=== PATIENT | male | born 1980 | race Caucasian/White ===

== ENCOUNTER 2022-04-30 02:06 | Emergency (ER) | payer OTHER, SELFPAY ==
[2022-04-30 02:17] VITALS: BP 166/112; PULSE 112; RESP 18; TEMP 36.6; O2SAT 98
[2022-04-30 02:25] VITALS: RESP 18; O2SAT 98
--- OUTSIDE RECORDS SUMMARY | 2022-04-30 02:52 | XMS_ITS | Clinical Summary ---
:1980 Author Organization [facility] [place] [address] Care Team Providers Name Role Phone Clinic, [facility] Bryant Primary Care Provider [phone] Allergies Active Allergy Reactions Severity Noted Date Comments Varenicline Agitation 02/06/2014 Lisinopril Angioedema 05/10/2019 Medications Medication Sig Dispensed Refills Start Date End Date Status cholecalciferol, Take 1 tablet by 0 05/08/2019 Active Vitamin D3, (VITAMIN mouth once daily. D-3) 5,000 unit tab tabletIndications: Vitamin D deficiency EPINEPHrine (EPIPEN) Inject 0.3 mg 0.3 mL 0 05/10/2019 Active 0.3 mg/0.3 mL intramuscular one injectionIndications time if needed for : Angioedema, Allergic Reaction initial encounter for up to 1 dose. buPROPion Take 1 tablet by 90 tablet 1 06/17/2019 Ac tive (WELLBUTRIN XL) 300 mouth once daily. mg Extended-Release tabletIndications: Depression with anxiety albuterol HFA Inhale 2 Puffs by 1 Each 2 03/16/2022 Active (PRO-AIR; VENTOLIN; mouth every 4 hours PROVENTIL) 90 if needed for mcg/actuation Wheezing. inhalerIndications: Mild intermittent asthma without complication predniSONE Take 1 Tablet (20 5 Tablet 0 03/16/2022 Active (DELTASONE) 20 mg mg) by mouth once tabletIndications: daily. Cough, unspecified type, Mild intermittent asthma without complication levoFLOXacin Take 1 Tablet (500 7 Tablet 0 04/29/2022 022 Active (LEVAQUIN) 500 mg mg) by mouth once tabletIndications: daily for 7 days. Acute parotitis metroNIDAZOLE Take 1 Tablet (500 21 Tablet 0 04/29/2022 Active (FLAGYL) 500 mg mg) by mouth every tabletIndications: 8 hours. 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 Mild intermittent asthma 05/01/2006 Tobacco use Resolved Problems Problem Noted Date Resolved Date Tobacco use disorder 09/16/2010 04/24/2019 Encounters Date Type Specialty Care Team Description 04/29/2022 Ancillary Procedure Arrived 04/29/2022 Office Visit Dolly Chaudhari Edema (Left s joe of the AIRAM Dickey face- Last week and went away, Monday came back- painful t o touch- no teeth pain.) 04/29/2022 Telephone Pcp, No Appointment Rashel mcdowell (STAT REFERRAL ) 04/29/2022 Travel 03/16/2022 Ancillary Procedure 03/16/2022 Office Visit Dolly Chaudhari Cough (3 week s); Sinus AIRAM Dickey Problem (3 week s) 03/16/2022 Travel from Last 3 Months Immunizations Name Administration Dates Next Due Influenza, IIV3 (Age >=3 years) 03/11/2014, 03/07/2013, 03/06, 02/26/2009 Influenza, IIV4 03/18/2019, 06/13/2018, 02/19/2016 Td (Age >=7 Years) 07/01/2005 Tdap 12/10/2015 Family History Medical History Relation Name Comments Hypertension Brother 2 Diabetes Father Hyperlipidemia Father Hypertension Father Kidney failure Father Arthritis Mother RA Relation Name Status Comments Brother 1 Alive Brother 2 Father Alive Maternal Grandfather Maternal Grandmother Mother Alive Paternal Grandfather Paternal Grandmother Alive Social History Tobacco Use Types Packs/Day Years Used Date Current Every Day Smoker Cigarettes 1 20 Smokeless Tobacco: Never Used Tobacco Cessation: Ready to Quit: No; Co unseling Given: Yes Alcohol Use Standard Drinks/Week Comments Not Currently 0 (1 standard drink = 0.6 oz pure Hasn't drank since January 2019 alcohol) Alcohol Habits Answer Date Recorded How often do you have a drink containing Not asked alcohol? How many drinks containing alcohol do 1 or 2 you have on a typical day when you are drinking? How often do you have six or more drinks Not asked on one occasion? Comment: Hasn't drank since January 2019 0 Sex Assigned at Date Recorded Not on file COVID-19 Exposure Response Date Recorded In the last 10 days, have you been in contact with No / Unsu re 04/29/2022 8:37 AM [facility] DIRECT[facility] someone who was confirmed or suspected to have Coronavirus/COVID-19? Obstetrics History Last Filed Vital Signs Vital Sign Reading Time Taken Comments Blood Pressure 137/89 04/29/2022 8:41 AM [facility] Pulse 86 04/29/2022 8:41 AM [facility] Temperature 36.7 ??C (98 ??F) 04/29/2022 8:41 AM [facility] DIRECT[facility] Respiratory Rate 16 05/10/2019 3:31 AM [facility] C[facility] DIRECT[facility] Oxygen Saturation 99% 04/29/2022 8:41 AM [facility] DIRECT[facility] Inhaled Oxygen Concentration - - Weight 83.2 kg (183 lb 6.4 oz) 04/29/2022 8:41 AM [facility] C[facility] DIRECT[facility] Height 185.4 cm (6' 1) 05/13/2019 7:50 AM [facility] C[facility] DIRECT[facility] Body Mass Index 24.2 05/13/2019 7:50 AM [facility] DIRECT[facility] Plan of Treatment Health Maintenance Due Date Last Done Comments COVID-19 vaccine series (#1) 1979 Pneumococcal series for age 19-64 1985 (1 - PCV) HIV for age 15-65 1994 Hepatitis C screening for age 0801/08/1997 18-79 BMI (ht and wt on same day) for 05/13/2020 05/13/2019, 1209/2018, age 18+ 04/24/2019, Additional history exists Depression screening for age 12+ 06/17/2020 06/17/2019, 11/2018, 05/08/2019, Additional history exists Influenza for age 9-49 02/03/2022 03/18/2019, 06/13/2018, 02/19/2016, Additional history exists Lipids for age 35-44 04/24/2024 04/24/2019, 07/03/2017, 12/10/2015, Additional history exists Tetanus booster 12/09/2025 12/10/2015, 07/01/2005 Tdap Completed 12/10/2015 Procedures Procedure Name Priority Date/Time Associated Diagnosis Comme nts CT NECK SOFT TISSUE W STAT 04/29/2022 9:58 AM Acute parotit is Results for this [facility] DIRECT[facility] procedure are i n the results section. CBC WITH AUTO Routine 04/29/2022 9:15 AM Acute parotitis Resul ts for this DIFFERENTIAL [facility] CARE C[facility] DIRECTOR procedure are i n the results section. CBC WITH AUTO Routine 04/29/2022 9:15 AM Acute parotitis Resul ts for this DIFFERENTIAL [facility] DIRECT[facility] procedure are i n the results section. AEROBIC BACTERIAL Routine 04/29/2022 9:05 AM Acute parotitis CULTURE, STAIN [facility] C[facility] C[facility] DIRECTOR XR CHEST 2 VIEWS PA Routine 03/16/2022 2:37 PM Cough, unspecif ied Results for this AND LATERAL CDT type procedure are i n the results section. COVID 19 Routine 03/16/2022 1:35 PM Cough, unspecified Res ults for this CDT type procedure are i n the results section. COVID 19 COLLECTION Routine 03/16/2022 1:35 PM Cough, unspecif ied Results for this CDT type procedure are i n the results section. from Last [address] NECK SOFT TISSUE W (04/29/2022 9:58 AM [facility]ARE C[facility] DIRECTOR) Anatomical Region Laterality Modality NECK Computed Tomography Specimen (Source) Anatomical Collection Method Collection Time Re ceived Time Location / / Volume Laterality 04/29/2022 10:30 AM [facility] C[facility] DIRECTOR Narrative 04/29/2022 10:30 AM [facility] CARE C[facility] DIRECTOR For Patients: ??As a result of the Cures Act, medical imaging exams and procedure report s are released immediately into your [facility] medical record. ??You may view this report before your referring provider. ??If you have questions, please contact your health care provider. Indication: Left-sided neck pain, redness swelling Technique: Volumetric multidetector CT images of th e cervical soft tissues were obtained after the administration of low osmolar intravenous contrast. 100 cc Omnipaque 350 low osmolar intrave nous contrast Comparison: None available. Findings: The partially visualized brain parenchym a is normal in attenuation without evidence of abnormal enhancement. There is polypoid mucosal thickening see n within the paranasal sinuses. The mastoid air cells are clear. The nasopharynx is unremarkable. The fos afia of Rosenmuller are clear. There are mildly prominent bilateral pal atine tonsils. There is no evidence of peritonsillar or intra tonsillar fluid collection. There is mild prominence of the lingual tonsil. There is demonstration of marked enlarge ment of the left parotid gland with heterogeneous attenuation and extensive peripheral inflammatory changes involving the credit review analyst space and submandibular space . There is moderate superficial thickeni ng of the platysma and left superficial subcutaneous soft tissues. The vocal folds are nonthickened with sy mmetrical appearance. The thyroid gland is normal in attenuati on. There are enlarged cervical lymph nodes seen within the bilateral cervical soft tissues. The jugular veins are patent. The caroti d arteries demonstrate no significant atherosclerotic narrowing. The lung apices are clear with mild biap ical pleural thickening and moderate emphysematous changes of the upper lobes. There is straightening of the normal cer vical lordosis without evidence of significant spondylolisthesis. Impression: Demonstration of marked enlargement of t he left parotid gland with severe peripheral inflammatory changes involving the credit review analyst and submandibular spaces consistent with parotiditis. There is moderate superficial thickening of the left plat ysma and subcutaneous soft tissues. There are enlarged, reactive cervical lymph nodes. Mild prominence of the palatine and ling ual tonsils are noted which may represent mild reactive changes and/or low-grade pharyngitis. Correlate with history of clinical symptoms. Please note that all CT scans at this [facility] use dose modulation, iterative reconstruction, and/or weight-based dosing when appropriate to reduce radiation dose to as low as reasonably achievable. Dictated by Mitchell Thomas MD @ 04/29/20 10:30:21 AM (Electronically Signed) Procedure Note Mitchell Thomas MD - 04/29/2022Fo rmatting of this note might be different from the original. For Patients: As a result of the ntury Cures Act, medical imaging exams and procedure reports are released immediately into your electronic medical record. You may view this report before your referring provider. If you have questions, please contact [facility] care provider. Indication: Left-sided neck pain, redness swelling Technique: Volumetric multidetector CT images of th e cervical soft tissues were obtained after the administration of low osmolar intravenous contrast. 100 cc Omnipaque 350 low osmolar intrave nous contrast Comparison: None available. Findings: The partially visualized brain parenchym a is normal in attenuation without evidence of abnormal enhancement. There is polypoid mucosal thickening see n within the paranasal sinuses. The mastoid air cells are clear. The nasopharynx is unremarkable. The fos afia of Rosenmuller are clear. There are mildly prominent bilateral pal atine tonsils. There is no evidence of peritonsillar or intra tonsillar fluid collection. There is mild prominence of the lingual tonsil. There is demonstration of marked enlarge ment of the left parotid gland with heterogeneous attenuation and extensive peripheral inflammatory changes involving the credit review analyst space and submandibular space. There is moderate superficial thickening of the p latysma and left superficial subcutaneous soft tissues. The vocal folds are nonthickened with sy mmetrical appearance. The thyroid gland is normal in attenuati on. There are enlarged cervical lymph nodes seen within the bilateral cervical soft tissues. The jugular veins are patent. The caroti d arteries demonstrate no significant atherosclerotic narrowing. The lung apices are clear with mild biap ical pleural thickening and moderate emphysematous changes of the upper lobes. There is straightening of the normal cer vical lordosis without evidence of significant spondylolisthesis. Impression: Demonstration of marked enlargement of t he left parotid gland with severe peripheral inflammatory changes involving the credit review analyst and submandibular spaces consistent with parotiditis. There is moderate superficial thickening of the left platysma and subc utaneous soft tissues. There are enlarged, reactive cervical lymph nodes. Mild prominence of the palatine and ling ual tonsils are noted which may represent mild reactive changes and/or low-grade pharyngitis. Correlate with history of clinical symptoms. Please note that all CT scans at this [facility] use dose modulation, iterative reconstruction, and/or weight-based dosing when appropriate to reduce radiation dose to as low as reasonably achievable. Dictated by Mitchell Thomas MD @ 04/29/20 10:30:21 AM (Electronically Signed) Dolly ALEGRIA CT (ABNORMAL) CBC WITH AUTO DIFFERENTIAL (04/29/2022 9:15 AM [facility]) [facility] Method Time Signature WHITE BLOOD 16.7 (H) 4.5 - 04/29/2022 [facility] COUNT 11.0 9:21 AM [facility] mm RED BLOOD COUNT 4.81 4.30 - 04/29/2022 [facility] 5.90 9:21 AM [facility] mm CLINIC HEMOGLOBIN 14.7 13.5 - 04/29/2022 [facility] 17.5 g/dL 9:21 AM [facility] HEMATOCRIT 42.8 37.0 - 04/29/2022 [facility] 53.0 % 9:21 AM [facility] MCV 89 80 - 100 04/29/2022 [facility] fL 9:21 AM [facility] MCH 30.6 26.0 - 04/29/2022 [facility] 34.0 pg 9:21 AM [facility] MCHC 34.3 32.0 - 04/29/2022 [facility] 36.0 g/dL 9:21 AM [facility] RDW 13.8 11.5 - 04/29/2022 [facility] 15.5 % 9:21 AM [facility] PLATELET COUNT 356 140 - 440 04/29/2022 [facility] thou/cu 9:21 AM [facility] MPV 10.1 6.5 - 04/29/2022 [facility] 11.0 fL 9:21 AM [facility] % NEUT 82.4 % 04/29/2022 [facility] 9:21 AM [facility] % LYMPH 8.9 % 04/29/2022 [facility] 9:21 AM [facility] % MONO 7.4 % 04/29/2022 [facility] 9:21 AM [facility] % EOS 1.1 % 04/29/2022 [facility] 9:21 AM [facility] % BASO 0.2 % 04/29/2022 [facility] 9:21 AM [facility] ABSOLUTE 13.8 (H) 1.7 - 7.0 04/29/2022 [facility] NEUTROPHILS thou/cu 9:21 AM [facility] ABSOLUTE 1.5 0.9 - 2.9 04/29/2022 [facility] LYMPHOCYTES thou/cu 9:21 AM [facility] DIRECTOR [facility] CLINIC ABSOLUTE 1.2 (H) <0.9 04/29/2022 [facility] MONOCYTES thou/cu 9:21 AM [facility]ARE CENTER DIRECTOR [facility] ABSOLUTE 0.2 <0.5 04/29/2022 [facility] EOSINOPHILS thou/cu 9:21 AM [facility] CENTER DIRECTOR [facility] ABSOLUTE 0.0 <0.3 04/29/2022 [facility] BASOPHILS thou/cu 9:21 AM [facility]ARE C[facility] DIRECTOR [facility] Specimen Anatomical Collection Method / Collection Time Recei ronald Time (Source) Location / Volume Laterality Blood BLOOD SPECIMEN / Venipuncture / 04/29/2022 9:15 2021 9:16 Unknown Unknown AM [facility] DIRECTOR AM [facility] DIRECTOR Dolly ALEGRIA HEMATOLOGY Performing Organization Address City/State/ZIP Code Phon e Number [facility] [address] [place] [address] XR CHEST 2 VIEWS PA AND LATERAL (03/16/2022 2:37 PM CDT) Anatomical Region Laterality Modality CHEST, THORAX, Lung, HEART Computed Radi ography Specimen (Source) Anatomical Collection Method Collection Time Re ceived Time Location / / Volume Laterality 03/16/2022 2:49 PM CDT Impressions 03/16/2022 2:49 PM CDT No acute findings. Dictated by Robib Vera MD @ Mar 16 2 022 ??2:49PM (Electronically Signed) ?? Narrative 03/16/2022 2:49 PM CDT For Patients: ??As a result of the Century Cures Act, medical imaging exams and procedure report s are released immediately into your [facility] medical record. ??You may view this report before your referring provider. ??If you have questions, please contact your health care provider. INDICATION: Cough TECHNIQUE: Chest 2 views COMPARISON: 03/01/2018 FINDINGS: Cardiovascular and mediastinum: ??Heart size and vasculature are normal in caliber and appearance. ?? Lungs and pleural spaces: ??Lungs are cl ear. ??No sign of infiltrate or mass. ??No sign of pleural effusion. ??No pneumothorax. ?? Bones and soft tissues: ??No significant findings. Stable density overlying the left upper hemithorax. Physiologic wedging mid thoracic spine. Procedure Note Robbi Vera MD - 03/16/2022For matting of this note might be different from the original. For Patients: As a result of the ntury Cures Act, medical imaging exams and procedure reports are released immediately into your electronic medical record. You may view this report before your referring provider. If you have questions, please contact [facility] care provider. INDICATION: Cough TECHNIQUE: Chest 2 views COMPARISON: 03/01/2018 FINDINGS: Cardiovascular and mediastinum: Heart si ze and vasculature are normal in caliber and appearance. Lungs and pleural spaces: Lungs are brittany r. No sign of infiltrate or mass. No sign of pleural effusion. No pneumothorax. Bones and soft tissues: No significant f indings. Stable density overlying the left upper hemithorax. Physiologic wedging mid thoracic spine. IMPRESSION: No acute findings. Dictated by Robbi Vera MD @ Mar 16 2 022 2:49PM (Electronically Signed) [facility] COVID 19 (03/16/2022 1:35 PM CDT) Analysis Performed At Patho logist Time Signature COVID 19 Negative Negative 03/18/2022 [facility] 6:12 AM CDT LABORATORY-[facility] Comment: All PCR tests are subject to fa lse negative result due to variability in viral load and collection technique. A n egative result does not rule out a SARS-CoV-2 infection. Clinical correlation required . Specimen Anatomical Location / Collection Method Collection Azeem e Received Time (Source) Laterality / Volume Other SPECIMEN FROM Non-Blood / 03/16/2022 1:35 03/17/2022 6:48 NASOPHARYNGEAL Unknown PM CDT AM CDT STRUCTURE / Unknown Narrative [facility] LABORATORY-CENTRAL LABORAT ORY - 03/18/2022 6:12 AM CDT This test has been authorized by FDA und er an Emergency Use Authorization (EUA). This test is only authorized for the duration of time the declaration that circumstances exist justifying the authorization of th e emergency use of in vitro diagnostic tests for detection of SARS-CoV-2 virus and/or diagnosis of COVID-19 infection under section 564(b)(1) of the Act, 21 U.S.C. 360bbb-3(b)(1), unless the authorization is terminated or revoked sooner. Dolly ALEGRIA MICROBIOLOGY Performing Organization Address City/[facility] Code Phon e Number [facility] [address] [place] [address] LABORATORY-CENTRAL 2000 LABORATORY COVID 19 COLLECTION (03/16/2022 1:35 PM CDT) [facility] Method Time Signature TESTING [facility] 03/17/2022 [facility] LABORATORY Laboratory 6:48 AM CDT LABORATORY-CE NTRAL LABORATORY Comment: Specimen submitted to [facility] for testing. Specimen Anatomical Location / Collection Method Collection Azeem e Received Time (Source) Laterality / Volume Other SPECIMEN FROM Non-Blood / 03/16/2022 1:35 03/16/2022 2:28 NASOPHARYNGEAL Unknown PM CDT PM CDT STRUCTURE / Unknown Dolly ALEGRIA SEND OUTS Performing Organization Address [facility] Phon e Number [facility] [address] [place] [id number] LABORATORY-CENTRAL 1999 LABORATORY from Last 3 Months Insurance Payer Benefit Plan / Subscriber ID Effective Dates Phone Addre ss Type Group PREFERRED ONE [employer] [id number] 2015-Present [address] [address] [place] [address] Care Teams Investigator Claims Relationship Specialty Start Date End Date Clinic, [facility] PCP - General 02/02/21 [address] [facility] [place] [id number]
--- NOTE | 2022-04-30 16:30 | ED.GENADULT ---
HPI - General Adult General Chief complaint: Jaw Injury/Pain Stated complaint: Swelling in back left cheek/ neck Time Seen by Provider: 04/30/22 02:23 History of Present Illness HPI narrative: 42-year-old man presenting to the emergency department with increased pain and swelling of the left side of his face which has extended back behind his ear. Has occurred over the last 24 hours. He has not had any fever. No drainage. Was actually seen within the last 12 hours or so at the [facility]. CT scan done at the time which results I am able to review as Mr. Means can access over-read, confirms parotitis. No obstructing duct stone or cellulitis was noted. No dental issues. As far as he knows he is vaccinated for MMR. No trauma. Does smoke. Has had 1 dose of levofloxacin. Had not yet filled the metronidazole as think he wanted to get on a right-timed cycle. Also did not think he should take ibuprofen as might be contraindication with levofloxacin according to the fine print. No sialagogues. Has not been able to sleep for the pain. Related Data Home Medications Medication Instructions Recorded Confirmed Wellbutrin 04/30/22 albuterol 90 mcg/actuation aerosol mcg inhalation 04/30/22 inhaler prednisone 20 mg tablet 20 mg PO DAILY 04/30/22 04/30/22 Allergies Allergy/AdvReac Type Severity Reaction Status Date / Time varenicline [From Chantix] AdvReac Verified 04/30/22 02:22 lisinopril AdvReac Intermediate Uncoded 04/30/22 02:22 Review of Systems Status of ROS: Reports: 6 or more systems reviewed and unremarkable except as noted in History and below [facility] Social History Smoking Status: Current every day smoker Do you use any of these nicotine containing products: None Second hand tobacco smoke exposure: No How often do you have a drink containing alcohol: monthly or less AUDIT-C Alcohol total score: 1 Non-prescribed substance use: denies use service: No Exam Narrative: Exam Narrative: Clearly tired. Cigarette smell is noticeable. Noticeable swelling over the left side of his face mid cheek area and extending posterior. Clearly uncomfortable to open his mouth please able to do so. I do not see or feel any stone or enlarged duct/stoma. Dentition looks to be in good repair. Exam externally shows broad swelling covering the posterior aspect of the mandible with edema extending toward the tragus. This also then extends inferior and posterior somewhat to the ear. Generally tense and rather tender. Mildly erythematous with mild calor. Does not look to be cellulitic otherwise. Do not appreciate cervical lymph nodes. Is breathing easily. There is no stridor. Cranial nerves 2-12 intact. Cardiovascular is regular rhythm tachycardic. Const: Vital Signs, click to edit/add: Vital Signs - 24 hr 04/30/22 02:17 04/30/22 02:25 Temperature 97.8 F Pulse Rate [Left P ulse Oximeter] 112 H Respiratory Rate 18 Respiratory Rate [ Left Jaw] 18 Blood Pressure [Ri ght Upper Arm] 166/112 H Pulse Oximetry 98 Oxygen Delivery Me thod Room Air Documenting provider has reviewed patient's vital signs: yes Course Vital Signs Vital signs: Initial Vital Signs Temperature 97.8 F 04/30/22 02:17 Temperature Source Temporal Artery Scan 04/30/22 02:17 Pulse Rate 112 H 04/30/22 02:17 Pulse Rhythm 04/30/22 02:17 Respiratory Rate 18 04/30/22 02:17 Blood Pressure 166/112 H 04/30/22 02:17 Blood Pressure Mean 130 04/30/22 02:17 Blood Pressure Position Semi-Fowlers 04/30/22 02:17 Pulse Oximetry 98 04/30/22 02:17 Oxygen Delivery Method 04/30/22 02:17 Vital Signs Temperature 97.8 F 04/30/22 02:17 Pulse Rate 112 H 04/30/22 02:17 Respiratory Rate 18 04/30/22 02:17 Blood Pressure 166/112 H 04/30/22 02:17 Pulse Oximetry 98 04/30/22 02:17 Oxygen Delivery Method 04/30/22 02:17 Temperature 97.8 F 04/30/22 02:17 Pulse Rate 112 H 04/30/22 02:17 Respiratory Rate 18 04/30/22 02:25 Blood Pressure 166/112 H 04/30/22 02:17 Pulse Oximetry 98 04/30/22 02:17 Oxygen Delivery Method 04/30/22 02:17 Medical Decision Making MDM Narrative Medical decision making narrative: I am certainly concerned about the spread. Rapidity of spread might suggest occlusion but can not palpate anything like this. Further CT imaging does not demonstrate that although I suppose there could be a radiolucent stone. A further concerns tachycardia. He has not really had much in the way of antibiotic treatment. Can't say he has failed outpatient but spread is concerning. At this time will be discharged to close follow-up with pain management as well Medical Records Medical records reviewed: Yes I reviewed the patient's medical records Discharge Plan Discharge Clinical Impression: Acute parotitis Patient Disposition: Home, Self-Care Condition: Stable Additional Instructions: Important to stay hydrated. Can take ibuprofen or acetaminophen for pain. Max dosing of acetaminophen per dose is 1000 mg. Remember that each tablet of Percocet has 325 mg of acetaminophen. Do take the metronidazole when you get home. Generally you can probably fudge dosing windows on these antibiotics by an hour or 2. Also when you get home I would take ibuprofen and 2 Percocet. Percocet from [facility]. This can be combined with the ibuprofen. Alternative to the ibuprofen might be up to 500 mg of naproxen 2 times daily. Be re-evaluated for worsening swelling yet after 24, maybe 36 hours. Be seen for fever, uncontrolled pain, any indication that you are having difficulty breathing or swallowing your saliva. Remember that sucking on sour candies might be helpful. Prescriptions: No Action albuterol 90 mcg/actuation aerosol inhalation Wellbutrin prednisone 20 mg tablet 20 mg PO DAILY Rx Instructions: days 11-21 of therapy Stand Alone Forms: [employer] Info Instructions
== END 2022-04-30 02:52 | disposition home or self-care (01) ==
LOC: ED 02:51
PROVIDERS: Emergency Provider Family Medicine; PCP Student in an Organized Health Care Education/Training Program
DX: K11.20 Sialoadenitis, unspecified (principal)
CPT/HCPCS: 99283